=== PATIENT | male | born 1985 | race Caucasian/White ===

== ENCOUNTER 2016-09-04 06:52 | Emergency (ER) | payer MEDICARE, OTHER ==
[2016-09-04 07:51] LABS: Eosinophils % (Auto) 4.4 % (0.0-4.3)
[2016-09-04 08:05] LABS: BUN/Creatinine Ratio 4.34; Chloride 94.7 mmol/L (98-107); Potassium 5.1 mmol/L (3.6-5.0)
[2016-09-04 09:08] LABS: Hematocrit 25.5 % (35.5-45.6); Mean Corpuscular HGB Conc 32 % (32-34); Mean Corpuscular Volume 79 fl (84-94); Platelet Count 431 K/mm3 (140-440); Red Blood Count 3.24 M/mm3 (3.65-5.03); White Blood Count 12.9 K/mm3 (4.5-11.0)
[2016-09-04 09:11] LABS: Mean Corpuscular Hemoglobin 25 pg (28-32); Red Cell Distribution Width 20.5 % (13.2-15.2)
[2016-09-04] MEDS ORDERED: NACL 0.9% 500 ML 500 ML IV ONE (09:38)
[2016-09-04] MEDS ORDERED: DILAUDID IV ONE ×2 (09:39→11:22)
[2016-09-04] MEDS ORDERED: NACL ONE (09:50)
--- NOTE | 2016-09-04 09:58 | Emergency Department Report ---
ED Chest Pain HPI - General Chief Complaint: Chest Pain Stated Complaint: CHEST PAIN/LEFT LEG PAIN Time Seen by Provider: 09/04/16 09:38 Source: patient Mode of arrival: Wheelchair Limitations: No Limitations - History of Present Illness MD Complaint: chest pain -: Sudden Onset: during rest Pain Location: substernal Pain Radiation: none Severity: moderate Severity scale (0 -10): 9 Quality: tightness, sharp Consistency: constant Improves With: nothing Worsens With: nothing re: denies: nausea, vomting, diaphoresis, dyspnea, sense of impending doom Other Symptoms: denies: cough, fever, syncope, rash, acid taste in mouth Treatments Prior to Arrival: none Aspirin use within the Past 7 Days: (0) No - Related Data Home Medications Medication Instructions Recorded Confirmed Last Taken Insulin NPH Hum/Reg Insulin Hm 30 unit SQ PRN 09/04/16 09/04/16 Unknown [HumuLIN 70-30 Vial] Metoprolol [Lopressor TAB] 50 mg PO DAILY 09/04/16 09/04/16 Unknown NIFEdipine [Nifedipine ER] 60 mg PO BID 09/04/16 09/04/16 Unknown hydrALAZINE [Apresoline TAB] 100 mg PO BID 09/04/16 09/04/16 Unknown Previous Rx's Medication Instructions Recorded Last Taken Type Oxycodone HCl/Acetaminophen 1 each PO BID #10 tablet 09/04/16 Unknown Rx [Percocet 10/325 mg] Allergies Allergy/AdvReac Type Severity Reaction Status Date / Time No Known Allergies Allergy Verified 09/04/16 09:59 Heart Score - HEART Score History: Slightly suspicious EKG: Normal Age: < 45 Risk factors: 1-2 risk factors Troponin: 1-3x normal limit HEART Score: 2 ED Review of Systems ROS: Stated complaint: CHEST PAIN/LEFT LEG PAIN Other details as noted in HPI Comment: All other systems reviewed and negative ED Past Medical Hx - Past Medical History Hx Hypertension: Yes Hx Congestive Heart Failure: Yes Hx Diabetes: Yes Hx Renal Disease: Yes (peritoneal dialysis nightly) 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 PD catheter - Social History Smoking Status: Never Smoker Substance Use Type: None - Medications Home Medications: Home Medications Medication Instructions Recorded Confirmed Last Taken Type Insulin NPH Hum/Reg Insulin Hm 30 unit SQ PRN 09/04/16 09/04/16 Unknown History [HumuLIN 70-30 Vial] Metoprolol [Lopressor TAB] 50 mg PO DAILY 09/04/16 09/04/16 Unknown History NIFEdipine [Nifedipine ER] 60 mg PO BID 09/04/16 09/04/16 Unknown History Oxycodone HCl/Acetaminophen 1 each PO BID #10 tablet 09/04/16 Unknown Rx [Percocet 10/325 mg] hydrALAZINE [Apresoline TAB] 100 mg PO BID 09/04/16 09/04/16 Unknown History ED Physical Exam - General Limitations: No Limitations General appearance: alert, in no apparent distress - Head Head exam: Present: atraumatic, normocephalic - Eye Eye exam: Present: normal appearance - ENT ENT exam: Present: normal exam, normal orophraynx, mucous membranes moist - Neck Neck exam: Present: normal inspection - Respiratory Respiratory exam: Present: normal lung sounds bilaterally. Absent: respiratory distress - Cardiovascular Cardiovascular Exam: Present: regular rate, normal rhythm. Absent: systolic murmur, diastolic murmur, rubs, gallop - GI/Abdominal GI/Abdominal exam: Present: soft, normal bowel sounds. Absent: distended, tenderness, guarding - Rectal Rectal exam: Present: deferred - Extremities Exam Extremities exam: Present: normal inspection - Back Exam Back exam: Present: normal inspection - Neurological Exam Neurological exam: Present: alert, oriented X3 - Psychiatric Psychiatric exam: Present: normal affect, normal mood - Skin Skin exam: Present: warm, dry, intact, normal color. Absent: rash ED Course Vital Signs 09/04/16 09/04/16 09/04/16 07:19 08:42 08:59 Temperature 98.6 F Pulse Rate 111 H 103 H 103 H Respiratory 17 14 15 Rate Blood Pressure 158/97 Blood Pressure 164/97 [Left] O2 Sat by Pulse 100 94 Oximetry 09/04/16 09/04/16 09/04/16 09:00 09:01 09:30 Temperature Pulse Rate 101 H 103 H 100 H Respiratory 15 14 Rate Blood Pressure 159/96 154/96 Blood Pressure [Left] O2 Sat by Pulse 98 99 Oximetry 09/04/16 10:00 Temperature Pulse Rate 100 H Respiratory 15 Rate Blood Pressure 148/94 Blood Pressure [Left] O2 Sat by Pulse 93 Oximetry LAURA score - Laura Score Age > 65: (0) No Aspirin use within the Past 7 Days: (0) No 3 or more CAD Risk Factors: (1) Yes 2 or more Angina events in past 24 hrs: (0) No Known CAD with more than 50% Stenosis: (0) No Elevated Cardiac Markers: (0) No ST Deviation Greater than 0.5mm: (0) No LAURA Score: 1 ED Medical Decision Making - Lab Data Result diagrams: 09/04/16 07:31 09/04/16 07:31 - EKG Data -: EKG Interpreted by Me EKG shows normal: sinus rhythm - EKG Data Interpretation: no acute changes - Radiology Data Radiology results: report reviewed, image reviewed - Medical Decision Making patient improved with pain meds, doing well, offered admission but he rather go home and has a planned trip later this week, cta negative for PE Critical care attestation.: If time is entered above; I have spent that time in minutes in the direct care of this critically ill patient, excluding procedure time. ED Disposition Clinical Impression: Chest pain Disposition: DC-01 TO HOME OR SELFCARE Is pt being admited?: No Does the pt Need Aspirin: No Condition: Good Instructions: Chest Pain (ED) Prescriptions: Oxycodone HCl/Acetaminophen [Percocet 10/325 mg] 1 each PO BID #10 tablet Referrals: PRIMARY CARE, [Primary Care Provider] - 3-5 Days Time of Disposition: 11:24
[2016-09-04 10:01] LABS: Basophils % (Manual) 0 % (0.0-1.8); Blastocytes % (Manual) 0 %
[2016-09-04 10:02] LABS: Anisocytosis 1+; Diff Status Complete; Hypochromasia 1+; Polychromasia Few; Tear Drop Cells Few
--- NOTE | 2016-09-04 10:58 | Cat Scan Report ---
CTA CHEST: Technique: Helical CT following IV contrast. Pulmonary embolus protocol. Sagittal and coronal reformatted images. Rotational MIP images. Findings: Contrast bolus is satisfactory. No pulmonary embolus is identified. Mild cardiomegaly and trace right pleural effusion are identified. Minor atelectatic changes in the lower lobes, otherwise, the lungs are clear. The thyroid gland, tracheobronchial tree, esophagus, pericardium, mediastinal vessels, and bony thorax are unremarkable. Impression: No ulnar embolus identified. Mild cardiomegaly and trace right pleural effusion.
[2016-09-04] MEDS ORDERED: ZOFRAN IV ONE (11:05)
[2016-09-04 12:19] VITALS: BP 149/93
== END 2016-09-04 12:35 | disposition home or self-care (01) ==
LOC: ED 06:52
DX: R07.89 Other chest pain (principal); I13.2 Hypertensive heart and chronic kidney disease with heart failure and with stage 5 chronic kidney disease, or end stage renal disease; E11.22 Type 2 diabetes mellitus with diabetic chronic kidney disease; N18.6 End stage renal disease; I50.9 Heart failure, unspecified; Z99.2 Dependence on renal dialysis; Z79.4 Long term (current) use of insulin
CPT/HCPCS: 36415; 71275; 80048; 80061; 84484; 85007; 85025; 93005; 93010; 96374; 96375; 96376; 99285; J1170; J2405; J7040; Q9967